=== PATIENT | male | born 1965 | race Caucasian/White ===

== ENCOUNTER 2016-12-23 08:15 | Day surgery (SDC) | payer OTHER, BC ==
[~2016-12-23] VITALS: Ht 172.7 cm; Wt 100.0 kg
[2016-12-23 08:53] VITALS: BP 144/86; PULSE 77; TEMP 97.7
[2016-12-23] MEDS ORDERED: FORFIVO XL450 MG PO (08:57)
[2016-12-23] MEDS ORDERED: NEURONTIN100 MG/CAP PO (08:58)
[2016-12-23] MEDS ORDERED: VIVLODEX10 MG PO (08:58)
[2016-12-23] MEDS ORDERED: ANDROGEL1.62% TOP (08:59)
[2016-12-23] MEDS ORDERED: VIAGRA100 M1 PO (09:00)
[2016-12-23 09:51] VITALS: BP 108/81; PULSE 72; TEMP 97.7
[2016-12-23 10:00] VITALS: BP 105/74; PULSE 64
[2016-12-23 10:15] VITALS: BP 118/80; PULSE 78
== END 2016-12-23 10:30 | disposition home or self-care (01) ==
LOC: SDCO 08:15
DX: Z12.31 Encounter for screening mammogram for malignant neoplasm of breast (principal)
CPT/HCPCS: OP; J2250; J3010; J7030